=== PATIENT | male | born 1945 | race Caucasian/White ===

== ENCOUNTER 2018-11-23 19:15 | Inpatient (IN) ==
--- NOTE | 2018-11-23 19:54 | Emergency Department Note ---
Disposition Clinical Impression: Cerebrovascular accident Disposition: Admitted As Inpatient General Adult HPI - General Chief complaint: ED Neuro Symptoms/Deficit Stated complaint: Confused Time Seen by Provider: 11/23/18 19:29 Source: patient, family Limitations: no limitations - History of Present Illness HPI Narrative: Mr Raymundo is a 73M who presents today complaining of slurred speech and confusion. Pt's last known well was 11:30 this morning. Pt's is at bedside and provides most of the history. She reports their grandchildren noticed around 4:30 this afternoon the patient "didn't look good". Reports they called her and told her to come home. She report when she arrived home around 5:00, the patient was confused and had slurred speech. She also noted that while he has a known tremor in his right arm, his left arm was shaking. The reports these symptoms have nearly resolved at this time, and had begun to improve when they left the home to come to the hospital. Pain Scale: 0 - Related Data Home Medications Medication Instructions Recorded Confirmed Albuterol Sulfate [Proair Hfa] 2 puff IH Q4H PRN 12/30/15 06/19/18 Aspirin Enteric Coated [Aspirin EC] 81 mg PO DAILY 12/30/15 06/19/18 Tadalafil [Cialis] 5 mg PO DAILY 12/30/15 06/19/18 Cholecalciferol (D-3) [Vitamin D] 2,000 unit PO DAILY 01/16/18 06/19/18 Amlodipine Besylate 10 mg PO DAILY 06/19/18 06/19/18 Sulfamethoxazole/Trimeth DS 1 tab PO BID 06/19/18 06/19/18 [Bactrim Ds] Allergies Allergy/AdvReac Type Severity Reaction Status Date / Time Antihistamines - Alkylamine AdvReac unable to Verified 06/19/18 07:38 urinate Past Medical History - Past Medical History Medical history: Reports: arthritis, cardiomyopathy, COPD, coronary artery disease, GERD, hyperlipidemia, hypertension, myocardial infarction, osteoporosis, renal disease, sudden cardiac , syncope, valvular heart disease, other Surgical history: Reports: herniorrhaphy, other Psychiatric history: Reports: no psych history - Social History Smoking Status: Unknown if ever smoked Smokeless Tobacco Status: No Alcohol use: Reports: none Drug use: Reports: none Physical Exam - General Limitations: no limitations General appearance: alert Course - Consultations Consultation #1: Discussed pt's case with Dr Bower. Time: 21:13 Consultation #2: Spoke with [facility] neurologist, Dr Gurrola, who recommended pt receive an MRI during admission. States not necessary to call stroke alert or transfer pt at this time. Time: 21:33 Vital Signs Temperature 99.7 F H 11/23/18 19:31 Pulse Rate 104 11/23/18 19:31 Respiratory Rate 21 11/23/18 19:31 Blood Pressure 158/98 11/23/18 19:31 O2 Sat by Pulse Oximetry 95 11/23/18 19:31 Temperature 99.7 F H 11/23/18 19:31 Pulse Rate 101 11/23/18 21:21 Respiratory Rate 20 11/23/18 21:21 Blood Pressure 127/58 11/23/18 21:21 O2 Sat by Pulse Oximetry 91 11/23/18 21:21 Oxygen Delivery Oxygen Delivery Room Air Medical Decision Making - Medical Records Medical records reviewed: Yes I reviewed the patient's medical records. - Lab Data Result diagrams: 11/23/18 19:48 11/23/18 19:48 Lab Results 11/23/18 11/23/18 11/23/18 Range/Units 19:23 19:48 19:48 WBC 3.3 L (4.3-11.1) K/mcL RBC 4.77 (4.19-5.50) M/mcL Hgb 13.9 (12.9-16.9) g/dL Hct 41.4 (37.5-50.1) % MCV 86.8 (83.0-100.0) fL MCH 29.1 (28.0-33.3) pg MCHC 33.6 (31.6-35.5) g/dL RDW 13.6 (11.5-14.5) % Plt Count 106 L (140-400) K/mcL MPV 9.4 (9.4-12.4) fL Sodium 131 L (136-145) mEq/L Potassium 4.4 (3.5-5.1) mEq/L Chloride 100 (98-107) mEq/L Carbon Dioxide 24 (23-29) mEq/L BUN 24 H (8-23) mg/dL Creatinine 1.32 H (0.70-1.30) mg/dL Est GFR ( Amer) > 60 (> 60) Est GFR (Non-Af Amer) 53 L (> 60) BUN/Creatinine Ratio 18 (6-26) Glucose 108 H (70-105) mg/dL POC Glucose 109 H (70-99) mg/dL Calculated Osmolality 277 L (280-300) Calcium 8.8 (8.6-10.3) mg/dL Troponin I < 0.03 (< 0.04) ng/mL NIH Stroke Scale - Level of Consciousness LOC: Alert - LOC Questions LOC Questions: Answers both correctly - LOC Commands LOC Commands: Performs both correctly - Best Gaze Best Gaze: Normal - Visual Visual: No visual loss - Facial Palsy Facial Palsy: Normal - Motor Arms Motor Arm-Left: No drift for 10 seconds Motor Arm-Right: No drift for 10 seconds - Motor Legs Motor Leg-Left: No drift for 5 seconds Motor Leg-Right: No drift for 5 seconds - Limb Ataxia Limb Ataxia: Normal, No Ataxia - Sensory Sensory: Normal - Best Language Best Language: No aphasia - Dysarthria Dysarthria: Normal - Extinction and Inattention Extinction and Inattention: Normal - NIHSS Total Score NIHSS Total Score: 0
[2018-11-23 20:04] LABS: Hematocrit 41.4 % (37.5-50.1); Hemoglobin 13.9 g/dL (12.9-16.9); Mean Corpuscular HGB Conc 33.6 g/dL (31.6-35.5); Mean Corpuscular Hemoglobin 29.1 pg (28.0-33.3); Mean Corpuscular Volume 86.8 fL (83.0-100.0); Mean Platelet Volume 9.4 fL (9.4-12.4); Platelet Count 106 K/mcL (140-400); Red Blood Count 4.77 M/mcL (4.19-5.50); Red Cell Distribution Width 13.6 % (11.5-14.5)
[2018-11-23 20:23] LABS: BUN/Creatinine Ratio 18 (6-26); Blood Urea Nitrogen 24 mg/dL (8-23); Calcium 8.8 mg/dL (8.6-10.3); Carbon Dioxide 24 mEq/L (23-29); Chloride 100 mEq/L (98-107); Glucose 108 mg/dL (70-105); Osmolality,Calculated 277 (280-300); Potassium 4.4 mEq/L (3.5-5.1); Sodium 131 mEq/L (136-145); Troponin I < 0.03 ng/mL (< 0.04); eGFR For Non-African Americans 53 (> 60)
--- NOTE | 2018-11-23 20:46 | Emergency Department Note ---
Disposition Clinical Impression: Cerebrovascular accident Qualifiers: CVA mechanism: unspecified Qualified Code(s): I63.9 - Cerebral infarction, unspecified Disposition: Admitted As Inpatient General Adult HPI - General Chief complaint: ED Neuro Symptoms/Deficit Stated complaint: Confused Time Seen by Provider: 11/23/18 19:29 Source: patient, family Limitations: no limitations - History of Present Illness Pain Scale: 0 - Related Data Home Medications Medication Instructions Recorded Confirmed Albuterol Sulfate [Proair Hfa] 2 puff IH Q4H PRN 12/30/15 06/19/18 Aspirin Enteric Coated [Aspirin EC] 81 mg PO DAILY 12/30/15 06/19/18 Tadalafil [Cialis] 5 mg PO DAILY 12/30/15 06/19/18 Cholecalciferol (D-3) [Vitamin D] 2,000 unit PO DAILY 01/16/18 06/19/18 Amlodipine Besylate 10 mg PO DAILY 06/19/18 06/19/18 Sulfamethoxazole/Trimeth DS 1 tab PO BID 06/19/18 06/19/18 [Bactrim Ds] Allergies Allergy/AdvReac Type Severity Reaction Status Date / Time Antihistamines - Alkylamine AdvReac unable to Verified 06/19/18 07:38 urinate Past Medical History - Past Medical History Medical history: Reports: arthritis, cardiomyopathy, COPD, coronary artery disease, GERD, hyperlipidemia, hypertension, myocardial infarction, osteoporosis, renal disease, sudden cardiac , syncope, valvular heart disease, other Surgical history: Reports: herniorrhaphy, other Psychiatric history: Reports: no psych history - Social History Smoking Status: Unknown if ever smoked Smokeless Tobacco Status: No Alcohol use: Reports: none Drug use: Reports: none Physical Exam - General Limitations: no limitations General appearance: alert Course Vital Signs Temperature 99.7 F H 11/23/18 19:31 Pulse Rate 104 11/23/18 19:31 Respiratory Rate 21 11/23/18 19:31 Blood Pressure 158/98 11/23/18 19:31 O2 Sat by Pulse Oximetry 95 11/23/18 19:31 Temperature 98.6 F 11/23/18 22:51 Pulse Rate 98 11/23/18 22:51 Respiratory Rate 20 11/23/18 22:51 Blood Pressure 142/69 11/23/18 22:51 O2 Sat by Pulse Oximetry 94 11/23/18 22:51 Oxygen Delivery Oxygen Delivery Room Air Medical Decision Making - Lab Data Result diagrams: 11/23/18 19:48 11/23/18 19:48 Lab Results 11/23/18 11/23/18 11/23/18 Range/Units 19:23 19:48 19:48 WBC 3.3 L (4.3-11.1) K/mcL RBC 4.77 (4.19-5.50) M/mcL Hgb 13.9 (12.9-16.9) g/dL Hct 41.4 (37.5-50.1) % MCV 86.8 (83.0-100.0) fL MCH 29.1 (28.0-33.3) pg MCHC 33.6 (31.6-35.5) g/dL RDW 13.6 (11.5-14.5) % Plt Count 106 L (140-400) K/mcL MPV 9.4 (9.4-12.4) fL Sodium 131 L (136-145) mEq/L Potassium 4.4 (3.5-5.1) mEq/L Chloride 100 (98-107) mEq/L Carbon Dioxide 24 (23-29) mEq/L BUN 24 H (8-23) mg/dL Creatinine 1.32 H (0.70-1.30) mg/dL Est GFR ( Amer) > 60 (> 60) Est GFR (Non-Af Amer) 53 L (> 60) BUN/Creatinine Ratio 18 (6-26) Glucose 108 H (70-105) mg/dL POC Glucose 109 H (70-99) mg/dL Calculated Osmolality 277 L (280-300) Calcium 8.8 (8.6-10.3) mg/dL Troponin I < 0.03 (< 0.04) ng/mL Attestation Statement - Attestation Attestation: I examined this patient and my medical decision-making was reviewed with the SENIOR PLANNING MANAGER/PA/Advanced Practice Nurse/Resident Physician. I agree with the documented findings, disposition and treatment plan as described except to the extent set forth below. Patient is typically alert and oriented and appropriately interactive but the patient is now confused and I did speak with the patient as well as the . The patient's last known normal was 11:30 this morning. Head CAT scan is negative. Labs obtained and reviewed. He does not have focal neurologic deficits based on physical exam. Absolutely needs to be admitted with consideration for CVA. I did confirm several times that these are completely new findings according to the patient's . He stopped driving about 7 years ago because he had syncopal episodes however case and does drive to the store which is only several miles away patient also has a sibling who has syncopal episodes. 2044 I did review the patient's EKG showing atrial fibrillation with a rate of 105 without acute ischemic change. This was the initial EKG which was done at 1923. [id number]
[2018-11-23] MEDS ORDERED: 0.9 % Sodium Chloride 1,000 ML IVC ONE (20:51)
[2018-11-23] MEDS ORDERED: Albuterol 2.5 MG/3 ML NEBULIZER IH PRN (22:34)
[2018-11-23] MEDS ORDERED: Ondansetron 4 MG/2 ML VIAL IVP PRN (22:34)
[2018-11-23] MEDS ORDERED: Naloxone 0.4 MG/ML INJ IVP PRN (22:34)
[2018-11-23] MEDS: 0.9 % Sodium Chloride 1,000 ML IVC SCH (22:59)
[2018-11-23] MEDS: cefTRIAXone 1,000 MG in Water for inj. (sterile) 20 ML 10 ML IVP SCH (22:59)
[2018-11-23] MEDS: Azithromycin 500 MG in D5% in Water 250 ML IVPB SCH (23:04)
[2018-11-24 02:51] LABS: Mean Corpuscular Volume 85.9 fL (83.0-100.0)
[2018-11-24 02:53] LABS: Hemoglobin 11.9 g/dL (12.9-16.9); Immature Granulocytes % 0.3 % (0-4); Immature Platelets 1.9 % (1.1-6.1); Lymphocytes # 0.4 K/mcL (0.6-4.6); Mean Corpuscular HGB Conc 33.1 g/dL (31.6-35.5); Mean Corpuscular Hemoglobin 28.4 pg (28.0-33.3); Mean Platelet Volume 9.4 fL (9.4-12.4); Monocytes # 0.1 K/mcL (0.0-1.3); Monocytes % 4.9 %; Neutrophils # 2.3 K/mcL (1.6-8.9); Red Blood Count 4.19 M/mcL (4.19-5.50); Red Cell Distribution Width 13.7 % (11.5-14.5); Segmented Neutrophils % 79.8 %
[2018-11-24 02:54] LABS: Estimated Average Glucose 131 mg/dl; Hemoglobin A1C 6.2 %
[2018-11-24 02:59] LABS: Platelet Count 94 K/mcL (140-400)
[2018-11-24 03:08] LABS: Alanine Aminotransferase 52 Units/L (7-52); Albumin 3.3 g/dL (3.5-5.7); Albumin/Globulin Ratio 1.4 (1.1-2.2); Alkaline Phosphatase 80 Units/L (34-104); Aspartate Amino Transferase 85 Units/L (13-39); BUN/Creatinine Ratio 19 (6-26); Bilirubin,Total 0.4 mg/dL (0.3-1.0); Blood Urea Nitrogen 22 mg/dL (8-23); Calcium 7.9 mg/dL (8.6-10.3); Carbon Dioxide 22 mEq/L (23-29); Chloride 103 mEq/L (98-107); Globulin 2.3 g/dL (2.4-3.5); Glucose 116 mg/dL (70-105); Magnesium 1.8 mg/dL (1.6-2.6); Osmolality,Calculated 274 (280-300); Potassium 3.9 mEq/L (3.5-5.1); Sodium 130 mEq/L (136-145); Total Protein 5.6 g/dL (6.4-8.9); eGFR For Non-African Americans > 60 (> 60)
[2018-11-24 03:43] LABS: INR 1.1; Prothrombin Time 12.8 Seconds (9.4-12.1)
[2018-11-24 03:46] LABS: Activated Partial Thrombo Time 31.7 Seconds (26.0-36.0)
[2018-11-24] MEDS: Acetaminophen 325 MG TABLET PO PRN ×3 (03:54→19:15)
--- NOTE | 2018-11-24 04:23 | Internal Med History&Physical ---
Date of Encounter: 11/23/18 Time of Encounter: 21:15 Internal Medicine - H&P: HPI Chief complaint: altered mental status; slurred speech; cough Admitted From: Emergency Dept Plans for Post Hospital Care: Home History of present illness: Mr. Raymundo is a 73 year old male who presents to the ER tonight with complaints of altered mental status and slurred speech according to his . By the time he presented to ER and was evaluated, his slurred speech had resolved. He had no further focal deficits. He still had some altered mental status and confusion. Initial workup was done for possible stroke, and it was negative. ER then asked me to admit patient. Given that the symptom onset was less than 24 hours, I asked ER to contact [facility] neurology to discuss any possible further workup and/or intervention. [facility] neurology recommended admission to [facility] with MRI and further stroke workup per our protocol. I then accepted the patient. Upon my assessment of the patient, patient remained tachycardic, felt warm to touch, and was actively shivering. I questioned patient and at length and they both confirmed he's had cough, subjective fevers, chills, and a syncopal event yesterday. Symptoms started abruptly yesterday and progressively worsened today. Today, his noted he was confused, disoriented at times, and had some initial slurred speech which resolved quickly. Normally, he is an active individual and has no neurocognitive issues. He's had decreased PO intake, some nausea, but no vomiting or diarrhea. Cough has been nonproductive. He has become short of breath over last 24 hours. He also complains of some mild pleurisy with deep coughing and inspiration. I noted leukopenia after my assessment of the patient. On exam, he appeared dehydrated and appeared to have crackles focally in the left base. I was concerned moreso about pneumonia rather than stroke symptoms. I suspected his altered mental status was likely from pneumonia. Therefore, I asked the ER staff to order chest x-ray, blood cultures, empiric antibiotics at that moment as I suspected pneumonia as a source of his symptoms. Chest x-ray confirmed my suspicion. Past Med Surg Social Fam HX - Past Medical History Attestation: Yes The following information was validated with the patient. Source: patient, old records reviewed, obtained from family Medical history: arthritis, cardiomyopathy, COPD, coronary artery disease, GERD, hyperlipidemia, hypertension, myocardial infarction, osteoporosis, renal disease, sudden cardiac , syncope, valvular heart disease, other Additional medical history: BPH with nocturia,dysthymia,essential tumor,degenerative arthritis of hand,urethral stricture with history of urinary retention,symptomatic orthostatic hypotension,diverticulitis,LHC Psychiatric history: no psych history - Past Surgical History Surgical History: herniorrhaphy, other Additional surgical history: back x2. hemorrhoidectomy. urethral surgery - Social History Smoking Status: Never smoker Smokeless Tobacco Status: No Alcohol use: none Drug use: none Current living situation: Home, With Family Activity Level: Independent ambulation Recent Out of Country Travel Within the Last 8 Weeks: No - Family History Father Living Status: Hx Family Cardiac Disorders: Yes (mi) Internal Medicine - H&P: Meds Albuterol Sulfate [Proair Hfa] 2 puff IH Q4H PRN 12/30/15 [History] Aspirin Enteric Coated [Aspirin EC] 81 mg PO DAILY 12/30/15 [History] Tadalafil [Cialis] 5 mg PO DAILY 12/30/15 [History] Cholecalciferol (D-3) [Vitamin D] 2,000 unit PO DAILY 01/16/18 [History] Amlodipine Besylate 10 mg PO DAILY 06/19/18 [History] Sulfamethoxazole/Trimeth DS [Bactrim Ds] 1 tab PO BID 06/19/18 [History] Allergy/AdvReac Type Severity Reaction Status Date / Time Antihistamines - Alkylamine AdvReac unable to Verified 06/19/18 07:38 urinate - Constitutional Constitutional: chills, fatigue, fever(s), lethargy, no night sweats - EENT Eyes: no blurry vision, no change in vision Ears: no ear pain, no tinnitus Nose, mouth and throat: no nasal congestion, no sinus pressure, no sore throat - Cardiovascular Cardiovascular ROS IM: syncope, no chest pain, no edema, no irregular heart rhythm, no orthopnea - Respiratory Respiratory: cough, dyspnea, chest congestion, change in phlegm color, pain with cough, no excessive phlegm production - Gastrointestinal Gastrointestinal: nausea, no abdominal pain, no diarrhea, no hematemesis, no hematochezia, no melena, no vomiting - Genitourinary Genitourinary ROS male: no dysuria, no flank pain, no hematuria - Musculoskeletal Musculoskeletal ROS IM: no arthralgias, no back pain - Integumentary Integumentary IM: no rash, no jaundice - Neurological Neurological ROS: abnormal speech (resolved quickly), confusion, no convulsions, no focal weakness, no frequent falls, no headache(s), no numbness - Psychiatric Psychiatric: no anxiety, no depression - Endocrine Endocrine IM: no polydipsia, no polyuria - Allergic/Immunologic Allergic/Immunologic: no wheezing, no GI upset with certain foods - Constitutional Vitals: Temp Pulse Resp BP Pulse Ox 101.1 F H 87 18 145/72 92 11/24/18 03:23 11/24/18 03:23 11/24/18 03:23 11/24/18 03:23 11/24/18 03:23 General appearance: Present: cooperative, mild distress, A&O X 3, pleasant, answers questions appropriately Exam: appears acutely ill, non-toxic, dehydrated, and with active rigors - Head Head exam: Present: atraumatic, normal inspection - Eye Eye exam: Present: EOMI, PERRL. Absent: scleral icterus Pupils: Present: normal accommodation - ENT ENT exam: Present: mucous membranes dry, normal exam, normal oropharynx - Neck Neck exam general surgery: Present: full ROM, supple, trachea midline. Absent: lymphadenopathy, tenderness, nuchal rigidity, thyromegaly - Respiratory Respiratory exam: Present: rales (left base; + splinting w deep inspiration), respiratory distress (mild), rhonchi, tachypnea. Absent: chest wall tenderness, wheezes - Cardiovascular Cardiovascular exam: Present: RRR, +S1, +S2, tachycardia. Absent: diastolic murmur, systolic murmur - GI/Abdominal GI/Abdominal exam: Present: normal bowel sounds, soft. Absent: guarding, hepatomegaly, mass, rebound, splenomegaly, tenderness - Extremities Exam Extremities exam: Present: full ROM, normal capillary refill, warm, radial pulses palpable and symmetrical. Absent: calf tenderness, pedal edema, tenderness - Back Exam Back exam: Absent: CVA tenderness (L), CVA tenderness (R) - Neurological Exam Neurological exam: Present: alert, CN II-XII intact, oriented X3, no focal deficits, strengths equal and symetr throughout. Absent: motor sensory deficit, facial droop, speech deficit Additional comments: no focal deficits or AMS appreciated - Psychiatric Psychiatric exam: Present: normal affect, normal mood - Skin Skin exam: Present: dry, intact, warm Internal Med - H&P Results - Labs CBC & Chem 7: 11/24/18 02:33 11/24/18 02:33 Labs: Short CBC 11/23/18 11/24/18 Range/Units 19:48 02:33 WBC 3.3 L 2.9 L (4.3-11.1) K/mcL Hgb 13.9 11.9 L D (12.9-16.9) g/dL Hct 41.4 36.0 L (37.5-50.1) % Plt Count 106 L 94 L (140-400) K/mcL Neutrophils # 2.3 (1.6-8.9) K/mcL BMP 11/23/18 11/24/18 19:48 02:33 Sodium 131 L 130 L Potassium 4.4 3.9 Chloride 100 103 Carbon Dioxide 24 22 L BUN 24 H 22 Creatinine 1.32 H 1.16 Glucose 108 H 116 H Calcium 8.8 7.9 L Cardiac Enzymes 11/23/18 11/24/18 Range/Units 19:48 02:33 Troponin I < 0.03 < 0.03 (< 0.04) ng/mL Liver Function 11/24/18 Range/Units 02:33 Total Bilirubin 0.4 (0.3-1.0) mg/dL AST 85 H (13-39) Units/L ALT 52 (7-52) Units/L Alkaline Phosphatase 80 (34-104) Units/L Albumin 3.3 L (3.5-5.7) g/dL - Impressions ITS Impressions Head CT 11/23/18 19:52 IMPRESSION: No acute intracranial abnormality. D/ / Kyrie Nesbitt MD / Kyrie Nesbitt MD Interpreting Provider: Kyrie Nesbitt MD Chest X-Ray 11/23/18 22:07 IMPRESSION: Left lower lobe airspace disease, suspicious for early pneumonia D/ / Helio Garza MD / Helio Garza MD Interpreting Provider: Helio Garza MD - Diagnostic Studies Chest x-ray Status: image reviewed by me (LLL infiltrate) - Assessment and Plan (1) LLL pneumonia Current Visit: Yes Status: Acute Assessment and plan: 1. CXR confirmed my suspicion in ER. 2. Blood cultures ordered in ER per my request. 3. Will order sputum cultures. 4. IV antibiotics scheduled, PRN aerosols, oxygen as needed. Qualifiers: Pneumonia type: due to unspecified organism Qualified Code(s): J18.1 - Lobar pneumonia, unspecified organism (2) Sepsis Current Visit: Yes Status: Acute Assessment and plan: 1. Despite tachycardia, BP is preserved. 2. Will trend lactate levels. 3. IVF and IV antibiotics. 4. Likely etiology for AMS; do not suspect stroke. Qualifiers: Sepsis type: sepsis due to unspecified organism Qualified Code(s): A41.9 - Sepsis, unspecified organism (3) Acute encephalopathy Current Visit: Yes Status: Acute Assessment and plan: 1. Likely due to sepsis and pneumonia, not stroke. 2. Will proceed with stroke protocol nonetheless. 3. Neurochecks per protocol. 4. Will order MRI brain, carotid Dopplers, and ECHO. (4) Syncope Current Visit: Yes Status: Acute Assessment and plan: 1. Will order ECHO, Carotid Dopplers, glucose checks, and serial troponins with EKG's. 2. Likely due to sepsis. 3. Monitor on telemetry. Qualifiers: Syncope type: unspecified Qualified Code(s): R55 - Syncope and collapse (5) DVT prophylaxis Current Visit: Yes Status: Acute Assessment and plan: 1. Heparin SQ.
[2018-11-24] MEDS: 0.9 % Sodium Chloride 1,000 ML IVC SCH (05:49)
[2018-11-24] MEDS: *HR* Heparin 5,000 UNIT/ML VIAL SQ SCH ×2 (05:50→17:27)
[2018-11-24 07:08] LABS: Bilirubin,Urine Negative (Negative); Blood,Urine Negative (Negative); Clarity,Urine Cloudy (Clear); Color,Urine Yellow (Yellow); Glucose,Urine (UA) Normal (Normal); Ketones,Urine Negative (Negative); Leukocyte Esterase,Urine Negative (Negative); Nitrite,Urine Negative (Negative); PH,Urine 5.5 pH Units (5.0-8.0); Protein,Urine 100 mg/dL (Neg-Trace); Specific Gravity,Urine 1.021 (1.010-1.025); Urobilinogen,Urine Normal (Normal)
[2018-11-24 07:11] LABS: Hyaline Casts,Urine None Seen per lpf (None-Few); RBC,Urine 0-3 per hpf (0-3)
[2018-11-24] MEDS ORDERED: Perflutren Lipid Microsphere 1.3 ML in 0.9 % Sodium Chloride 8.7 ML IVP ONE (07:46)
[2018-11-24 07:48] LABS: Bacteria,Urine Many per hpf (None-Few); Squamous Epithelial Cell,Urine Few per lpf (None-Few)
[2018-11-24 07:49] LABS: Amorphous Sediment,Urine Few (Few)
[2018-11-24] MEDS ORDERED: cefTRIAXone 1,000 MG in Water for inj. (sterile) 20 ML 10 ML IVP SCH (09:00)
[2018-11-24] MEDS ORDERED: Aspirin Enteric Coated 81 MG Tablet PO SCH (09:00)
[2018-11-24] MEDS: cefTRIAXone 1,000 MG in Water for inj. (sterile) 20 ML 10 ML IVP SCH (09:34)
[2018-11-24] MEDS: amLODIPine 5 MG TABLET PO SCH (09:34)
--- NOTE | 2018-11-24 10:13 | Internal Med Progress Note ---
<Fawad Jaimes - Last Filed: 11/24/18 11:00> Hospitalist Progress Note - Encounter Date of Encounter: 11/24/18 Time of Encounter: 11:00 - Subjective Interval History: Patient admitted for acute encephalopathy and strokelike symptoms. He reports he has been feeling very weak and tired for the past 3 to 4 days. He was cut ting wood 2 days ago and felt so fatigued he had to stop and lay down. Yesterday patient woke up and was walking to the bathroom and felt so weak his legs gave out. And he reports he was on the floor for an unknown amount of time before his family found him and he came to the hospital. - Exam Vitals: Temp Pulse Resp BP Pulse Ox 98.1 F 75 14 146/64 95 11/24/18 09:21 11/24/18 09:21 11/24/18 09:21 11/24/18 09:21 11/24/18 09:21 Exam: General: pleasant, without distress HEENT: Head atraumatic, normocephalic, EOMI, PERRL, absent ear discharge or trauma, Moist Mucous Membranes, uvula midline Neck: nontender to palpation, absent lymphadenopathy, Cardiovascualr: Regular rate and rhythm with no murmur, absent gallops or rubs, absent pedal edema, radial pulses 2 out of 4 Lungs: Clear to auscultation bilaterally, not in respiratory distress Abdomen: Soft nontender, nondistended positive bowel sounds, absent hepatomegaly Skin: warm and dry, absent rash, absent open wounds and nodules MSK: absent clubbing, cyanosis, joints without swelling Neuro: Cranial nerves II through XII intact, UE and LE sensation equal bilaterally, UE and LEstrength 4/5, alert oriented 3, Heel to matthews intact, finger to nose intact, Gait intact, rhombergs sign negative, b/l plantar reflexes downwards Psych: good insight and judgment - Assessment and Plan (1) Sepsis Current Visit: Yes Status: Acute Assessment and Plan: Febrile, leukopenic, tachypneic, tachycardic Secondary to pneumonia Etiology of the pneumonia unknown Did not receive all of IV fluids due to concern of developing acute respiratory failure as pateint had crackles on exam on admission. Lactic acid 1.5. (2) LLL pneumonia Current Visit: Yes Status: Acute Assessment and Plan: Chest x-ray shows pneumonia Started on azithromycin and ceftriaxone Blood cultures pending, sputum culture pending If patient continues to have fever will add anaerobic coverage. (3) Septic encephalopathy Current Visit: Yes Status: Acute Assessment and Plan: Secondary to pneumonia Resolved patient is alert oriented 3 (4) CAD (coronary artery disease) Current Visit: Yes Status: Chronic Assessment and Plan: History of coronary artery disease Denies chest pain Echo cardio shows LVEF of 60% with right ventricular size dilated, normal systolic function and mild to moderate mitral regurgitation and tricuspid regurgitation. Continue aspirin, statin. (5) Hypertension Current Visit: Yes Status: Chronic Assessment and Plan: Continue amlodipine (6) Syncope Current Visit: Yes Status: Acute Assessment and Plan: Unclear etiology of syncope but can likely be too severe weakness from his infection Brain MRI was negative, head CT was negative carotid Dopplers bilaterally were negative. Echocardiogram as above. Patient has generalized weakness. Neuro exam nonfocal and nonlateralizing Awaiting speech therapy recommendations. We will get physical therapy and occupational therapy. We will obtain a CK as patient was on the ground for unknown amount of time. - Time Spent with Patient Total time spent is greater than 50% in coordination of care (as documented) at patient's floor/unit and/or counseling patient: Internal Medicine: Result - Labs CBC & Chem 7: 11/24/18 02:33 11/24/18 02:33 Labs: Short CBC 11/23/18 11/24/18 Range/Units 19:48 02:33 WBC 3.3 L 2.9 L (4.3-11.1) K/mcL Hgb 13.9 11.9 L D (12.9-16.9) g/dL Hct 41.4 36.0 L (37.5-50.1) % Plt Count 106 L 94 L (140-400) K/mcL Neutrophils # 2.3 (1.6-8.9) K/mcL BMP 11/23/18 11/24/18 19:48 02:33 Sodium 131 L 130 L Potassium 4.4 3.9 Chloride 100 103 Carbon Dioxide 24 22 L BUN 24 H 22 Creatinine 1.32 H 1.16 Glucose 108 H 116 H Calcium 8.8 7.9 L Cardiac Enzymes 11/23/18 11/24/18 Range/Units 19:48 02:33 Troponin I < 0.03 < 0.03 (< 0.04) ng/mL Liver Function 11/24/18 Range/Units 02:33 Total Bilirubin 0.4 (0.3-1.0) mg/dL AST 85 H (13-39) Units/L ALT 52 (7-52) Units/L Alkaline Phosphatase 80 (34-104) Units/L Albumin 3.3 L (3.5-5.7) g/dL Urine 11/24/18 Range/Units 06:53 Urine Color Yellow (Yellow) Urine Clarity Cloudy A (Clear) Urine pH 5.5 (5.0-8.0) pH Units Ur Specific [place] 1.021 (1.010-1.025) Urine Protein 100 H (Neg-Trace) mg/dL Urine Glucose (UA) Normal (Normal) mg/dL - ABG Interpretation ABG results: PT/INR, D-dimer PT 12.8 Seconds (9.4-12.1) H 11/24/18 02:33 - Impressions Impressions Head CT 11/23/18 19:52 IMPRESSION: No acute intracranial abnormality. D/ / Kyrie Nesbitt MD / Kyrie Nesbitt MD Interpreting Provider: Kyrie Nesbitt MD Chest X-Ray 11/23/18 22:07 IMPRESSION: Left lower lobe airspace disease, suspicious for early pneumonia D/ / Helio Garza MD / Helio Garza MD Interpreting Provider: Helio Garza MD Brain MRI 11/24/18 07:10 IMPRESSION: 1. No acute intracranial abnormality. No acute infarct. 2. Minimal global parenchymal volume loss with minimal chronic microvascular ischemic changes. D/ / Godfrey Nieves MD / Godfrey Nieves MD Interpreting Provider: Godfrey Nieves MD Consult Discharge Plan - Plan Referrals: Tor Maldonado MD [Primary Care Provider] - (Appointment has been requested. Our offices will call with an appointment time and date.) <Angelic Castro - Last Filed: 11/24/18 12:25> Hospitalist Progress Note - Encounter Date of Encounter: 11/24/18 - Exam Vitals: Temp Pulse Resp BP Pulse Ox 99.6 F 72 16 134/84 93 11/24/18 11:49 11/24/18 11:49 11/24/18 11:49 11/24/18 11:49 11/24/18 11:49 - Assessment and Plan (1) Syncope Current Visit: Yes Status: Acute (2) LLL pneumonia Current Visit: Yes Status: Acute (3) Sepsis Current Visit: Yes Status: Acute (4) Acute encephalopathy Current Visit: Yes Status: Acute (5) DVT prophylaxis Current Visit: Yes Status: Acute - Time Spent with Patient Total time spent is greater than 50% in coordination of care (as documented) at patient's floor/unit and/or counseling patient: Internal Medicine: Result - Labs CBC & Chem 7: 11/24/18 02:33 11/24/18 02:33 Labs: Short CBC 11/23/18 11/24/18 Range/Units 19:48 02:33 WBC 3.3 L 2.9 L (4.3-11.1) K/mcL Hgb 13.9 11.9 L D (12.9-16.9) g/dL Hct 41.4 36.0 L (37.5-50.1) % Plt Count 106 L 94 L (140-400) K/mcL Neutrophils # 2.3 (1.6-8.9) K/mcL BMP 11/23/18 11/24/18 19:48 02:33 Sodium 131 L 130 L Potassium 4.4 3.9 Chloride 100 103 Carbon Dioxide 24 22 L BUN 24 H 22 Creatinine 1.32 H 1.16 Glucose 108 H 116 H Calcium 8.8 7.9 L Cardiac Enzymes 11/23/18 11/24/18 11/24/18 Range/Units 19:48 02:33 10:36 Troponin I < 0.03 < 0.03 < 0.03 (< 0.04) ng/mL Liver Function 11/24/18 Range/Units 02:33 Total Bilirubin 0.4 (0.3-1.0) mg/dL AST 85 H (13-39) Units/L ALT 52 (7-52) Units/L Alkaline Phosphatase 80 (34-104) Units/L Albumin 3.3 L (3.5-5.7) g/dL Urine 11/24/18 Range/Units 06:53 Urine Color Yellow (Yellow) Urine Clarity Cloudy A (Clear) Urine pH 5.5 (5.0-8.0) pH Units Ur Specific [place] 1.021 (1.010-1.025) Urine Protein 100 H (Neg-Trace) mg/dL Urine Glucose (UA) Normal (Normal) mg/dL - ABG Interpretation ABG results: PT/INR, D-dimer PT 12.8 Seconds (9.4-12.1) H 11/24/18 02:33 - Impressions Impressions Head CT 11/23/18 19:52 IMPRESSION: No acute intracranial abnormality. D/ / Kyrie Nesbitt MD / Kyrie Nesbitt MD Interpreting Provider: Kyrie Nesbitt MD Chest X-Ray 11/23/18 22:07 IMPRESSION: Left lower lobe airspace disease, suspicious for early pneumonia D/ / Helio Garza MD / Helio Garza MD Interpreting Provider: Helio Garza MD Echocardiogram 11/23/18 22:39 Impressions: LVEF 60%. Indeterminate diastolic function. Right ventricular size is dilated. Systolic function is normal. Mild-moderate mitral regurgitation. Mild-moderate tricuspid regurgitation. No pulmonary hypertension. Left Ventricular Wall Motion: Rest Echo Findings All wall segments showed normal motion. Findings: Study Quality * Technically adequate exam. ECG Findings * Normal sinus rhythm. Left Ventricle * LVEF 60%. * Indeterminate diastolic function. * LV chamber size and wall thickness measurements are normal. * No LVOT obstruction. Right Ventricle * Right ventricular size is dilated. Systolic function is normal. Left Atrium * Mildly dilated left atrium. Right Atrium * Moderately dilated right atrium. Mitral Valve * Mild mitral annular calcification * No mitral stenosis. * Mildly calcified mitral valve leaflets. * Mild-moderate mitral regurgitation. Aortic Valve * Aortic valve not well visualized. * No aortic stenosis. * Trace aortic regurgitation. Tricuspid Valve * Tricuspid valve not well visualized. * Mild-moderate tricuspid regurgitation. Pulmonic Valve * Pulmonic valve is not well visualized. * No pulmonic stenosis. * No pulmonic regurgitation. Pulmonary Artery * Pulmonary artery not well visualized. Aorta * Not well visualized. Pericardium * There is no pericardial effusion present. Interatrial Septum * No evidence of PFO by color Doppler. IVC * The IVC is not well evaluated. Brain MRI 11/24/18 07:10 IMPRESSION: 1. No acute intracranial abnormality. No acute infarct. 2. Minimal global parenchymal volume loss with minimal chronic microvascular ischemic changes. D/ / Godfrey Nieves MD / Godfrey Nieves MD Interpreting Provider: Godfrey Nieves MD - Attending Attestation I examined this patient and my medical decision-making was reviewed with the Resident Physician Dr Jaimes. I agree with the documented findings, disposition and treatment plan as described except to the extent set forth below. Mr Raymundo is admitted for sepsis and pna after presenting with acute mental status change, generalized unwellness and syncope awake, not confused today, overall "feeling just better", cannot say exactly how. no sob, + cough, dry, denies wheezing, fevers or chills. no weakness, no slurred speech. denies dizziness or lightheadedness. no family present gen- alert, awake,appears stated age eyes- pupils equal round , eom intact cv- reg rate and rhythm, normal s1,s2, no murmurs appreciated, no le edema lungs- ctabl, no wheezing, rhonchi or crackles, diminished left base, normal resp effort on room air abd- soft, non tender, non distended, + bs neuro- AAOx3, CN grossly intact, no focal deficits, clear speech Sepsis 2/2 LLL pna -IVFs (not full sepsis fluids on admit given crackles in lungs and concern for fluid with echo pending at the time) -ucx and bl cx pending -Azithro + rocephin LLL Pna, organism unknown -azithro + rocephin, nebs, attempt to ID organism, check [employer] though low suspicion aspiration given LLL pna Acute encephaloapthy likely infectious etiology given pna, now resolved CVA ruled out Low suspicion related to hyponatremia as appears to be chronic in nature and improved with pna treatment with na unchanged -cont neuro checks -MRI reviewed, CUS and echo pending Syncope again suspect 2/2 sepsis/pna + dehydration -cont tele, cus and echo pending, trops neg Pancytopenia With leukopenia and thrombocytopenia present on admit suspect changes related to sepsis no active bleeding -will cont to treat sepsis as above and monitor for changes -would benefit from outpt work up on dc hyponatremia, appears chronic vs acure on chronic ( no recent labs) mental status improved without change in sodium suspect hypovolemic in nature -ivf, serial sodium checks, neuro checks, u studies pending next na level further diagnoses and plan as noted by resident <Fawad Jaimes - Last Filed: 11/24/18 11:00> (1) Sepsis Qualifiers: Sepsis type: sepsis due to unspecified organism Qualified Code(s): A41.9 - Sepsis, unspecified organism (2) LLL pneumonia Qualifiers: Pneumonia type: due to unspecified organism Qualified Code(s): J18.1 - Lobar pneumonia, unspecified organism (4) CAD (coronary artery disease) Qualifiers: Coronary Disease-Associated Artery/Lesion type: [place] artery [place] vs. transplanted heart: [place] heart Associated angina: with unstable angina Qualified Code(s): I25.110 - Atherosclerotic heart disease of [place] coronary artery with unstable angina pectoris (5) Hypertension Qualifiers: Hypertension type: essential hypertension Qualified Code(s): I10 - Essential (primary) hypertension (6) Syncope Qualifiers: Syncope type: unspecified Qualified Code(s): R55 - Syncope and collapse <Angelic Castro - Last Filed: 11/24/18 12:25> (1) Syncope Qualifiers: Syncope type: unspecified Qualified Code(s): R55 - Syncope and collapse (2) LLL pneumonia Qualifiers: Pneumonia type: due to unspecified organism Qualified Code(s): J18.1 - Lobar pneumonia, unspecified organism (3) Sepsis Qualifiers: Sepsis type: sepsis due to unspecified organism Qualified Code(s): A41.9 - Sepsis, unspecified organism
[2018-11-24 11:40] LABS: Creatine Kinase 83 Units/L (30-223); Troponin I < 0.03 ng/mL (< 0.04)
[2018-11-24 14:35] LABS: BUN/Creatinine Ratio 18 (6-26); Blood Urea Nitrogen 21 mg/dL (8-23); Calcium 8.1 mg/dL (8.6-10.3); Carbon Dioxide 24 mEq/L (23-29); Chloride 104 mEq/L (98-107); Glucose 134 mg/dL (70-105); Osmolality,Calculated 279 (280-300); Potassium 3.7 mEq/L (3.5-5.1); Sodium 132 mEq/L (136-145); eGFR For Non-African Americans > 60 (> 60)
[2018-11-24] MEDS ORDERED: *HR* OxyCODONE Immed Rel 5 MG TABLET PO PRN (15:58)
[2018-11-24] MEDS: *HR* HYDROcodone/Acet 5/325 mg TABLET PO PRN (17:27)
[2018-11-24 20:01] LABS: BUN/Creatinine Ratio 21 (6-26); Blood Urea Nitrogen 22 mg/dL (8-23); Carbon Dioxide 21 mEq/L (23-29); Chloride 102 mEq/L (98-107); Glucose 117 mg/dL (70-105); Osmolality,Calculated 278 (280-300); Potassium 4.1 mEq/L (3.5-5.1); Sodium 132 mEq/L (136-145); eGFR For Non-African Americans > 60 (> 60)
[2018-11-24] MEDS ORDERED: Azithromycin 500 MG in D5% in Water 250 ML IVPB SCH (21:00)
[2018-11-25] MEDS ORDERED: *HR* LORazepam 2 MG/ML VIAL IVP PRN (00:10)
[2018-11-25] MEDS: Azithromycin 500 MG in D5% in Water 250 ML IVPB SCH (00:15)
--- NOTE | 2018-11-25 00:22 | Event Note ---
Date of Encounter: 11/25/18 Time of Encounter: 00:16 I responded to a rapid response on this patient for witnessed seizure activity by RN. By the time we arrived to bedside, he had no seizure activity but appeared post-ictal. No report of loss of bowel or bladder function. He is somnolent, awakens to voice, and remains confused. I reviewed records, MRI report, and meds. I admitted this patient yesterday and remember him. I have some concern now for meningoencephalitis despite negative MRI. I asked pharmacy to load patient with Keppra, start Acyclovir, and I added Vancomycin and increased Rocephin to high dosing. I ordered Neurology consult and IR consult for possible LP and further treatment/work-up as indicated.
[2018-11-25] MEDS: Acyclovir 800 MG in D5% in Water 250 ML IVPB SCH ×3 (00:25→17:49)
[2018-11-25] MEDS: cefTRIAXone 2,000 MG in Water for inj. (sterile) 20 ML 20 ML IVP SCH ×2 (01:08→11:33)
[2018-11-25] MEDS: Acetaminophen 325 MG TABLET PO PRN ×2 (03:49→17:47)
[2018-11-25 05:14] LABS: Basophils % 0.4 %; Hemoglobin 12.5 g/dL (12.9-16.9); Mean Platelet Volume 10.7 fL (9.4-12.4); Monocytes % 3.2 %; Red Cell Distribution Width 13.6 % (11.5-14.5)
[2018-11-25 05:16] LABS: Hematocrit 36.7 % (37.5-50.1); Immature Granulocytes % 0.7 % (0-4); Immature Platelets 4.7 % (1.1-6.1); Lymphocytes # 0.5 K/mcL (0.6-4.6); Lymphocytes % 16.7 %; Mean Corpuscular HGB Conc 34.1 g/dL (31.6-35.5); Mean Corpuscular Volume 85.2 fL (83.0-100.0); Monocytes # 0.1 K/mcL (0.0-1.3); Neutrophils # 2.2 K/mcL (1.6-8.9); Red Blood Count 4.31 M/mcL (4.19-5.50)
[2018-11-25 05:37] LABS: BUN/Creatinine Ratio 18 (6-26); Blood Urea Nitrogen 21 mg/dL (8-23); Carbon Dioxide 21 mEq/L (23-29); Chloride 102 mEq/L (98-107); Glucose 126 mg/dL (70-105); Osmolality,Calculated 277 (280-300); Potassium 3.9 mEq/L (3.5-5.1); Sodium 131 mEq/L (136-145); eGFR For Non-African Americans 59 (> 60)
[2018-11-25 05:41] LABS: Platelet Count 57 K/mcL (140-400)
[2018-11-25 05:42] LABS: Platelet Estimate Decreased (Normal)
[2018-11-25] MEDS: *HR* HYDROcodone/Acet 5/325 mg TABLET PO PRN (06:02)
[2018-11-25] MEDS: *HR* Heparin 5,000 UNIT/ML VIAL SQ SCH (06:03)
[2018-11-25] MEDS ORDERED: NON-FORMULARY MEDICATION 1 EACH EACH (Pravastatin Sodium [Pravachol] 20 MG) PO SCH (09:00)
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
[2018-11-25] MEDS: amLODIPine 5 MG TABLET PO SCH (09:11)
--- NOTE | 2018-11-25 11:13 | Electrocardiograph Report ---
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
[2018-11-25] MEDS ORDERED: Silver Sulfadiazine 50 GM TUBE TP SCH (17:45)
[2018-11-25] MEDS ORDERED: *HR* Labetalol 20 MG/4 ML SYRINGE IVP PRN (17:53)
[2018-11-25 18:10] LABS: ABG Base Excess -2 mEq/L (-2 to 3); ABG HCO3 21 mEq/L (21-27); ABG Oxygen Saturation 92 % (95-98); ABG PCO2 29 mmHg (35-45); ABG PH 7.46 pH Units (7.32-7.45); ABG PO2 59 mmHg (85-104); ABG TCO2 21 mEq/L (20-26)
--- NOTE | 2018-11-25 18:36 | Discharge Summary ---
<Zachery Rodrigues S - Last Filed: 11/25/18 18:33> - NOTES TO OUTPATIENT PROVIDER Notes to Outpatient Provider: F/U with neurology as an outpatient. Headache workup. EEG pending. Pt will be transferred to [facility] at this time once bed available. Orders not resulted at time of discharge: Pending orders 11/23/18 22:39 Culture,Blood [BC] Stat 11/24/18 04:30 Culture,Sputum with Gram Stain [RM] Stat 11/25/18 00:13 CSF ROUTINE [BF] Routine Culture,CSF [RM] Routine HOLD TUBE, CSF [BF] Routine 11/25/18 00:15 Herpes Simplex PCR Body Fl Routine 11/25/18 04:00 Legionella Antigen [RM] AM 0400 Streptococcal pneumoniae urin antigen [S. Pneumoniae Antigen] [RM] AM 0400 11/25/18 17:56 Ammonia Stat 11/25/18 18:[address] without Contrast [CT head/brain wo con] [CT] Stat 11/26/18 14:00 Vancomycin,Trough Timed Date of Encounter: 11/25/18 Time of Encounter: 18:45 - Discharge Diagnosis (1) Seizure Priority: Secondary Status: Suspected (2) LLL pneumonia Priority: Secondary Status: Acute Qualifiers: Pneumonia type: due to unspecified organism Qualified Code(s): J18.1 - Lobar pneumonia, unspecified organism (3) Syncope Priority: Primary Status: Acute Qualifiers: Syncope type: unspecified Qualified Code(s): R55 - Syncope and collapse (4) Headache Priority: Secondary Status: Chronic Qualifiers: Headache type: unspecified Headache chronicity pattern: unspecified pattern Intractability: not intractable Qualified Code(s): R51 - Headache (5) CAD (coronary artery disease) Priority: Secondary Status: Chronic Qualifiers: Coronary Disease-Associated Artery/Lesion type: robinson artery [place] vs. transplanted heart: robinson heart Associated angina: with unstable angina Qualified Code(s): I25.110 - Atherosclerotic heart disease of robinson coronary artery with unstable angina pectoris (6) Hypertension Priority: Secondary Status: Chronic Qualifiers: Hypertension type: essential hypertension Qualified Code(s): I10 - Essential (primary) hypertension (7) Sepsis Priority: Secondary Status: Acute Qualifiers: Sepsis type: sepsis due to unspecified organism Qualified Code(s): A41.9 - Sepsis, unspecified organism (8) Acute encephalopathy Priority: Secondary Status: Acute (9) DVT prophylaxis Priority: Secondary Status: Acute Hospital course: Mr. Raymundo is a 73 year old male who presented to the ER on 11/24/18 with complaints of altered mental status and slurred speech according to his . By the time he presented to ER and was evaluated, his slurred speech had resolved. He had no further focal deficits. He still had some altered mental status and confusion. Initial workup was done for possible stroke, and it was negative. Overnight attending asked ER to contact [facility] neurology to discuss any possible further workup and/or intervention. [facility] neurology recommended admission to [place] with MRI and further stroke workup per our protocol. He was accepted fr further workup and treatment. On initial assessment of the pt as per night attending, he was tacycardic and warm and shivering.According to the symptoms started abruptly and progressively worsened. The noted he was confused, disoriented at times, and had some initial slurred speech which resolved quickly. Normally, he is an active individual and has no neurocognitive issues. He's had decreased PO intake, some nausea, but no vomiting or diarrhea. Cough has been nonproductive. He has become short of breath and mild pleurisy with deep coughing and inspiration. Workup fr syncope was non-revealing, including an ECHO with LVEF 60% with right ventricular size dilated, normal systolic function and mild to moderate mitral regurgitation and tricuspid regurgitation. Carotid duplex US negative bilaterally. CT head on admission negative. MRI head negative. XR showed pneumonia on imaging. He was started on antibiotics for this. Overnight on 11.25.18, the night attending was called due to suspected seizure. The pt had no known hx of seizure like activity. The suspicion for possible meningitis was on the differetial so a LP was ordered, which couldn't be performed due to limited resources and no IR. He was started on high dose rocephin, vancomycin and acyclovir. In the morning I called neurlogy who evaluated the pt at bedside and ordered an EEG. He felt this was related to possible parkinson's. This afternoon I was paged to the bedside. Pt was not at baseline. He was shaking and hardly able to lift his hand to his mouth. He was having difficulty drinking and appeared t be very flushed. He also had red eyes, which weren't appearant this morning. I ordered a STAT ABG, which was normal. STAT ammonia pending. STAT CT head w/o cntrast pending. I called Dr. Nguyen, neurology, who suggested transferring the pt to [facility] for continuous epileptic monitring. Discussed the case with my attending who agreed that transfer was best and with the patient's family, who agreed t transfer. Called [facility] at approx 630 PM, awaiting call back. Discharge order placed pending placement as well as med rec completed. Will continue to monitor and sign out to night-time resident to keep close watch on pt. Discharge discussed with: patient, family, nurse Time spent discussing smoking cessation with patient: 3 to 10 minutes - Time Spent with Patient Total time spent providing and/or coordinating discharge services: Time spent: Greater than 30 minutes - Discharge Medications Prescriptions: Continued Aspirin Enteric Coated [Aspirin EC] 81 mg PO DAILY Tadalafil [Cialis] 5 mg PO DAILY Albuterol Sulfate [Proair Hfa] 2 puff IH Q4H PRN PRN Reason: Shortness Of Breath Amitriptyline [Elavil] 50 mg PO HS Amlodipine Besylate 5 - 10 mg PO DAILY Cholecalciferol (Vitamin D3) [Vitamin D3] 2,000 unit PO DAILY Omeprazole [PriLOSEC] 20 mg PO DAILY Pravastatin Sodium [Pravachol] 20 mg PO DAILY Losartan Potassium 25 mg PO DAILY Home Medications: Albuterol Sulfate [Proair Hfa] 2 puff IH Q4H PRN 12/30/15 [History] Aspirin Enteric Coated [Aspirin EC] 81 mg PO DAILY 12/30/15 [History] Tadalafil [Cialis] 5 mg PO DAILY 12/30/15 [History] Amitriptyline [Elavil] 50 mg PO HS 11/24/18 [History] Amlodipine Besylate 5 - 10 mg PO DAILY 11/24/18 [History] Cholecalciferol (Vitamin D3) [Vitamin D3] 2,000 unit PO DAILY 11/24/18 [History] Losartan Potassium 25 mg PO DAILY 11/24/18 [History] Omeprazole [PriLOSEC] 20 mg PO DAILY 11/24/18 [History] Pravastatin Sodium [Pravachol] 20 mg PO DAILY 11/24/18 [History] Allergies/Adverse Reactions: Allergy/AdvReac Type Severity Reaction Status Date / Time Antihistamines - Alkylamine AdvReac unable to Verified 06/19/18 07:38 urinate Date of admission: 11/23/18 22:34 Primary care physician: Tor Maldonado MD Consults: 11/24/18 08:23 Consult to Nurse Navigator [CONS] Routine Comment: PNEUMONIA 11/24/18 11:07 Consult to Physical Therapy [CONS] Stat Comment: Evaluate, develop and implement POC Reason for Consult: Generalized weakness syncope fall Does patient have active BEDREST order?: No Is patient medically & hemodynamically stable?: Yes Patient assessed for mobility or mobilized this visit?: No 11/25/18 00:10 Consult to Interventional Radiology [CONS] Routine Consulting Provider: Radiology Interventional Cols Reason for Consult: LP Call Completed: No Consult to Neurology [CONS] Routine Consulting Provider: Neurology [facility] Reason for Consult: seizure; concern for encephalitis Call Completed: No 11/25/18 09:09 Consult to Speech Therapy [CONS] Routine Comment: Evaluate, develop and implement POC Reason for Consult: r/o aspiration Call Completed: No 11/25/18 16:13 Consult to Interpret Exam [CONS] Routine Consulting Provider: Liam Nguyen Consult to Interpret Exam: Interpret EEG Discharging clinician: Zachery Rodrigues Anticipated date of discharge: 11/25/18 - Constitutional Vitals: Temp Pulse Resp BP Pulse Ox 99.1 F 104 16 161/69 96 11/25/18 17:36 11/25/18 17:36 11/25/18 17:36 11/25/18 17:36 11/25/18 17:36 General appearance: Present: cooperative, mild distress, A&O X 3, pleasant, answers questions appropriately Exam: General: pleasant, without distress HEENT: Head atraumatic, normocephalic, EOMI, PERRL, absent ear discharge or trauma, Moist Mucous Membranes, uvula midline Neck: nontender to palpation, absent lymphadenopathy, Cardiovascualr: Regular rate and rhythm with no murmur, absent gallops or rubs, absent pedal edema, radial pulses 2 out of 4 Lungs: Clear to auscultation bilaterally, not in respiratory distress Abdomen: Soft nontender, nondistended positive bowel sounds, absent hepatomegaly Skin: warm and dry, absent rash, absent open wounds and nodules MSK: absent clubbing, cyanosis, joints without swelling Neuro: Cranial nerves II through XII intact, UE and LE sensation equal bilaterally, UE and LEstrength 4/5, alert oriented 3, Heel to matthews intact, finger to nose intact, Gait intact, rhombergs sign negative, b/l plantar reflexes downwards; increased tremors from this monring, shaking at bedside and unable to properly lift cup to face to drink Psych: good insight and judgment - Patient Status Disposition: Transfer Short-Term Hosp Condition: Fair Functional capacity at discharge: uses cane/walker Overall status at discharge: patient is not back to baseline - Discharge Instructions Follow Up With: Tor Maldonado MD [Primary Care Provider] - (Appointment has been requested. Our offices will call with an appointment time and date.) - Diet and Activity Activity: increase activity as tolerated Diet: other (NPO currently, aspiration risk) <Angelic Castro - Last Filed: 11/25/18 19:27> Orders not resulted at time of discharge: Pending orders 11/23/18 22:39 Culture,Blood [BC] Stat 11/24/18 04:30 Culture,Sputum with Gram Stain [RM] Stat 11/25/18 00:13 CSF ROUTINE [BF] Routine Culture,CSF [RM] Routine HOLD TUBE, CSF [BF] Routine 11/25/18 00:15 Herpes Simplex PCR Body Fl Routine 11/25/18 04:00 Legionella Antigen [RM] AM 0400 Streptococcal pneumoniae urin antigen [S. Pneumoniae Antigen] [RM] AM 0400 11/25/18 17:56 Ammonia Stat 11/25/18 18:[address] without Contrast [CT head/brain wo con] [CT] Stat 11/25/18 19:03 CMP [Comprehensive Metabolic Panel] Stat Complete Blood Count [HEME] Stat 11/26/18 14:00 Vancomycin,Trough Timed Date of Encounter: 11/25/18 - Discharge Diagnosis (1) Syncope Status: Acute Qualifiers: Syncope type: unspecified Qualified Code(s): R55 - Syncope and collapse (2) LLL pneumonia Status: Acute Qualifiers: Pneumonia type: due to unspecified organism Qualified Code(s): J18.1 - Lobar pneumonia, unspecified organism (3) Sepsis Status: Acute Qualifiers: Sepsis type: sepsis due to unspecified organism Qualified Code(s): A41.9 - Sepsis, unspecified organism (4) Acute encephalopathy Status: Acute (5) DVT prophylaxis Status: Acute Hospital course: Mr. Raymundo is a 73 year old male - Time Spent with Patient Total time spent providing and/or coordinating discharge services: Time spent: Greater than 30 minutes (50 min) Date of admission: 11/23/18 22:34 Primary care physician: Tor Maldonado MD Consults: 11/24/18 08:23 Consult to Nurse Navigator [CONS] Routine Comment: PNEUMONIA 11/24/18 11:07 Consult to Physical Therapy [CONS] Stat Comment: Evaluate, develop and implement POC Reason for Consult: Generalized weakness syncope fall Does patient have active BEDREST order?: No Is patient medically & hemodynamically stable?: Yes Patient assessed for mobility or mobilized this visit?: No 11/25/18 00:10 Consult to Interventional Radiology [CONS] Routine Consulting Provider: Radiology Interventional Cols Reason for Consult: LP Call Completed: No Consult to Neurology [CONS] Routine Consulting Provider: Neurology [facility] Reason for Consult: seizure; concern for encephalitis Call Completed: No 11/25/18 09:09 Consult to Speech Therapy [CONS] Routine Comment: Evaluate, develop and implement POC Reason for Consult: r/o aspiration Call Completed: No 11/25/18 16:13 Consult to Interpret Exam [CONS] Routine Consulting Provider: Liam Nguyen Consult to Interpret Exam: Interpret EEG - Constitutional Vitals: Temp Pulse Resp BP Pulse Ox 97.3 F L 111 17 142/66 98 11/25/18 18:33 11/25/18 18:33 11/25/18 18:33 11/25/18 18:33 11/25/18 18:33 - Attending Attestation I examined this patient and my medical decision-making was reviewed with the Resident Physician Dr Rodrigues. I agree with the documented findings, disposition and treatment plan as described except to the extent set forth below. Mr Raymundo is admitted for sepsis and pna after presenting with acute mental status change. His stroke work up was negative. 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 At that time given waxing and waning mental status the pt was started on empiric abx + acyclovir to treat possible encephalitis/meningitis with neuro consult placed. Neurology evaluated the patient, ordered EEG, cont vanc + rocephin + acyclovir awaiting LP and concern this was related to parkinson disease. At 6pm today nursing noted worse hand tremor and increased fatigue. Resident to bedside and discussed findings in detail. Resident nurse and I in communication with stat labs ordered and stat CT head. Dr Nguyen was updated and recommended transfer for continuous EEG monitoring, though not entirely convincing for seizure like activity and none witnessed currently. At time of this note, family has agreed to transfer to [facility], Dr Nguyen is reviewing todays EEG, stat CT scan remains pending and stat labs pe nding, and pt accepted to [facility] under Dr Valle. Resident was about to sign out to night team plan and pending studies when at 7:04 pm rapid response was called for elevated HR. As I am no longer in house, I have communicated to Hospitalist Admitter who responds to rapids current plan and pending studies. prior examination by myself See resident note for exam thereafter gen- awake,appears stated age eyes- pupils equal round , eom intact cv- reg rate and rhythm, normal s1,s2, no murmurs appreciated lungs- ctabl, no wheezing, rhonchi or crackles, normal resp effort on room air abd- soft, non tender, non distended, + bs neuro- AAOx3, CN grossly intact, no focal deficits, non focal generalized weakness Sepsis 2/2 LLL pna, possible neurologic infection, but Ruling out encephalitis, meningitis Fever, leukopenia Hemodynamically stable off IVFs -ucx and bl cx ngtd -IR for LP ordered, not yet preformed -Azithro + rocephin + VAnc + acyclovir (broadened by night team with possible seizure episode 5/4 AM) and continued pending LP results LLL Pna, organism unknown -azithro + rocephin, nebs Acute encephaloapthy likely infectious etiology given pna, appears to have waxing and waning mental status with assoicated fatigue confusion and hand tremors (visualized by Neurology and believed to be parkonsonian in nature) Episode possible seizure like activity 5/4 approx 12 AM CVA ruled out with MRI Hx multiple head traumas and chronic right frontal headache- follows with Dr Liseth Post Neurology Low suspicion related to hyponatremia as appears to be chronic in nature and mental status improved with pna treatment with na unchanged -appreciate neurology input-- low suspicion meningitis but will obtain LP, will check EEG with read pending at time of accepted to [facility], but suspect this is related to pna and possible parkinson disease on last neuro eval -new episode worsening tremor and lethargy 5/ approx 6 pm, neuro still with lower spuspicion of seizure activity, however all other work up is negative, rec for transfer for cont EEG monitoring and pt accepted at [facility] -stat ct head ordered and stat labs, both are not yet done and pending at this time and signed out to night team to follow awaiting transfer to [facility] Syncope day prior to admit again suspect 2/2 sepsis/pna + dehydration -cont tele, cus and echo no significant findings, trops neg -there is currently a reported rapid response for elevated HR at this time, though as this ocurred after my shift I do not know details of rapid response, please see addl documentation by night staff Pancytopenia With leukopenia and thrombocytopenia present on admit suspect changes related to sepsis no active bleeding -will cont to treat as above and monitor for changes -hold pharm vte ppx, add scds -stat CT head pending to rule out bleed at time of this documentation, night team to follow read once CT done hyponatremia, appears chronic vs acute on chronic ( no recent labs) mental status improved without change in sodium suspect hypovolemic in nature repeat level later today remained stable further diagnoses and plan as noted by resident time spent on dc 50 min transfer to [facility] further details can be obtained from next shift documentation of events occurring after 7pm
--- NOTE | 2018-11-25 19:03 | EEG/EMG/Oth Biometrics Report ---
EEG Procedure Report Date of procedure: 11/25/18 EEG Procedure: Routine EEG Procedure Note: This is a report of a 21 channel bipolar and referential montage EEG. A posterior dominant rhythm of 7-8 Hz moderate to low voltage mixed theta and alpha frequencies identified symmetrically in the posterior head regions. This attenuates symmetrically with eye opening. The rhythm however is poorly organized and poorly sustained. Hyperventilation is performed in recording. There is no sleep architecture identified during the study. Photic stimulation is performed and does not produce a driving response. The EKG rhythm strip reveals normal sinus rhythm at 90 bpm. Impressions: This EEG recording is mildly abnormal and is consistent with a mild generalized encephalopathy. There is no evidence of epileptiform activity identified during the study. Comment: Etiologies of this interpretation might include toxic, metabolic, postictal, infectious, medication effect. or degenerative. Please correlate clinically. Comment: This EEG does not rule out the possibility of seizures or epilepsy. If the clinical suspicion for seizure activity is high, serial EEGs or perhaps a prolonged study may increase the yield.
[2018-11-25] MEDS ORDERED: Acetaminophen 325 MG TABLET PO ONE (19:29)
[2018-11-25 19:30] LABS: Hematocrit 35.8 % (37.5-50.1); Red Cell Distribution Width 13.7 % (11.5-14.5)
[2018-11-25 19:32] LABS: Basophils % 0.7 %; Hemoglobin 12.2 g/dL (12.9-16.9); Immature Granulocytes % 0.4 % (0-4); Immature Platelets 4.6 % (1.1-6.1); Lymphocytes # 0.6 K/mcL (0.6-4.6); Lymphocytes % 20.4 %; Mean Corpuscular HGB Conc 34.1 g/dL (31.6-35.5); Mean Corpuscular Volume 85.2 fL (83.0-100.0); Mean Platelet Volume 9.9 fL (9.4-12.4); Monocytes # 0.3 K/mcL (0.0-1.3); Monocytes % 9.3 %; Neutrophils # 1.9 K/mcL (1.6-8.9); Segmented Neutrophils % 69.2 %
--- NOTE | 2018-11-25 19:32 | Event Note ---
Date of Encounter: 11/25/18 Time of Encounter: 19:10 Patient was seen during a rapid response alert. Patient has had intermittent tremulousness of the right upper extremity with waxing and waning confusion. Upon my arrival patient is awake, appears exhausted. He is diaphoretic. He is able to follow commands. He does recognize me, he remembers that was here to see him earlier today. Some questions however he does not answer appropriately. I would not consider him to be encephalopathic. He has no focal or lateralized deficits. No nuchal rigidity is present. He does have cogwheel rigidity of both upper extremities. His EEG revealed mild generalized encephalopathy. I interpreted study myself. It did not appear to be postictal in the true seconds, and the encephalopathy was mild is the posterior resting rhythm was at the lowest point only 7 Hz. The medicine team is also in attendance and the patient appears stable at this time from a neurologic perspective. However he will be transferred to tissue care facility for continuous EEG monitoring and other workup.
[2018-11-25 19:33] LABS: Platelet Count 53 K/mcL (140-400)
[2018-11-25 19:49] LABS: Platelet Estimate Decreased (Normal)
[2018-11-25 19:50] LABS: Alanine Aminotransferase 65 Units/L (7-52); Albumin/Globulin Ratio 1.3 (1.1-2.2); Alkaline Phosphatase 126 Units/L (34-104); Aspartate Amino Transferase 116 Units/L (13-39); BUN/Creatinine Ratio 16 (6-26); Bilirubin,Total 0.3 mg/dL (0.3-1.0); Blood Urea Nitrogen 20 mg/dL (8-23); Calcium 7.6 mg/dL (8.6-10.3); Carbon Dioxide 20 mEq/L (23-29); Chloride 100 mEq/L (98-107); Globulin 2.3 g/dL (2.4-3.5); Glucose 164 mg/dL (70-105); Osmolality,Calculated 270 (280-300); Potassium 3.6 mEq/L (3.5-5.1); Sodium 127 mEq/L (136-145); Total Protein 5.3 g/dL (6.4-8.9); eGFR For Non-African Americans 57 (> 60)
[2018-11-25 19:56] VITALS: BP 115/59
[2018-11-25 20:19] LABS: INR 1.1
[2018-11-25 20:21] LABS: Activated Partial Thrombo Time 35.4 Seconds (26.0-36.0)
--- NOTE | 2018-11-25 20:22 | Event Note ---
Date of Encounter: 11/25/18 Time of Encounter: 19:00 Rapid resposne kaila called and i wnet and assessed patient the bedside. I was told by the nurse that patient's heart rate had jumped to 250 bpm. when I went in the room, heart rate had dropped down to 90 bpm. We ordered a stat EKG on the patient which was negative for any ST-T changes,heart strain/block, HOCM , Brugada or WPW. On physical exam patient was able to follow commands, was mildly diaphoretic and tremulous in upper extremities. He was febrile with a temp of 102.8 and Motren was ordered. Patient has received Tylenol earlier . Neurologist agricultural extension officer Dr. Nguyen came and assessed the patient as well. Patient was deemed stable at this time from a neurological perspective. [facility] has been contacted for transfer of the patient for further neurological workup
[2018-11-25] MEDS ORDERED: Aminoglycoside Consult 1 EACH MC ONE (22:14)
== END 2018-11-25 22:15 | disposition short-term general hospital (02) | DRG 871 ==
LOC: 3BNU 19:15 → EMEROOARM 19:15 → SUATTDRO 22:34 → 3BNU 22:36
PROVIDERS: ADMIT Pediatrics; ATTEND Internal Medicine

== ENCOUNTER 2022-04-25 21:55 | Inpatient (IN) ==
[2022-04-26] MEDS: Acetaminophen 325 MG TABLET PO PRN ×2 (00:28→16:03)
[2022-04-26] MEDS ORDERED: Ondansetron 4 MG/2 ML VIAL IVP PRN (00:34)
[2022-04-26] MEDS ORDERED: Melatonin 3 MG TABLET PO PRN (00:34)
[2022-04-26] MEDS ORDERED: Naloxone 0.4 MG/ML INJ IVP PRN (00:34)
[2022-04-26 01:11] LABS: Basophils % 0.2 %; Eosinophils % 0.1 %; Hematocrit 38.1 % (37.5-50.1); Hemoglobin 12.9 g/dL (12.9-16.9); Immature Granulocytes % 0.3 % (0-4); Lymphocytes # 0.2 K/mcL (0.6-4.6); Lymphocytes % 2.1 %; Mean Corpuscular HGB Conc 33.9 g/dL (31.6-35.5); Mean Corpuscular Hemoglobin 29.4 pg (28.0-33.3); Mean Corpuscular Volume 86.8 fL (83.0-100.0); Mean Platelet Volume 8.5 fL (9.4-12.4); Monocytes # 0.1 K/mcL (0.0-1.3); Monocytes % 1.1 %; Neutrophils # 9.4 K/mcL (1.6-8.9); Platelet Count 240 K/mcL (140-400); Red Blood Count 4.39 M/mcL (4.19-5.50); Red Cell Distribution Width 12.8 % (11.5-14.5); Segmented Neutrophils % 96.2 %; White Blood Count 9.8 K/mcL (4.3-11.1)
[2022-04-26] MEDS ORDERED: Ringers Solution, Lactated 1,000 ML IVC ONE (01:13)
[2022-04-26 01:31] LABS: Albumin 3.6 g/dL (3.5-5.7); Albumin/Globulin Ratio 1.4 (1.1-2.2); Bilirubin,Direct 0.1 mg/dL (0.0-0.2); Bilirubin,Indirect 0.5 mg/dL (0.0-1.0); Bilirubin,Total 0.6 mg/dL (0.3-1.0); Calcium 8.8 mg/dL (8.6-10.3); Globulin 2.6 g/dL (2.4-3.5); Magnesium 1.6 mg/dL (1.6-2.6); Phosphorous 1.1 mg/dL (2.7-4.5); Potassium 3.4 mEq/L (3.5-5.1); Total Protein 6.2 g/dL (6.4-8.9)
[2022-04-26] MEDS ORDERED: Potassium Chloride Elixir 20 MEQ/15 ML UDC PO ONE (01:56)
[2022-04-26] MEDS: Ringers Solution, Lactated 1,000 ML IVC SCH ×2 (03:30→13:48)
[2022-04-26] MEDS ORDERED: cefTRIAXone 1,000 MG in 0.9 % Sodium Chloride Mini Bag 100 ML IVPB SCH (12:00)
[2022-04-26] MEDS: Piperacillin/Tazobactam 3.375 GM in 0.9 % Sodium Chloride Mini Bag 100 ML IVPB SCH (21:50)
[2022-04-27 02:27] LABS: Basophils % 0.2 %; Eosinophils # 0.1 K/mcL (0.0-0.6); Hematocrit 35.9 % (37.5-50.1); Hemoglobin 12.1 g/dL (12.9-16.9); Immature Granulocytes % 0.3 % (0-4); Lymphocytes # 0.8 K/mcL (0.6-4.6); Mean Corpuscular HGB Conc 33.7 g/dL (31.6-35.5); Mean Corpuscular Hemoglobin 29.6 pg (28.0-33.3); Mean Corpuscular Volume 87.8 fL (83.0-100.0); Mean Platelet Volume 8.8 fL (9.4-12.4); Monocytes # 0.5 K/mcL (0.0-1.3); Monocytes % 3.7 %; Neutrophils # 11.9 K/mcL (1.6-8.9); Platelet Count 203 K/mcL (140-400); Red Blood Count 4.09 M/mcL (4.19-5.50); Red Cell Distribution Width 13.2 % (11.5-14.5); Segmented Neutrophils % 88.8 %; White Blood Count 13.4 K/mcL (4.3-11.1)
[2022-04-27 02:43] LABS: Calcium 8.6 mg/dL (8.6-10.3); Phosphorous 2.9 mg/dL (2.7-4.5); Potassium 3.7 mEq/L (3.5-5.1)
[2022-04-27] MEDS: Piperacillin/Tazobactam 3.375 GM in 0.9 % Sodium Chloride Mini Bag 100 ML IVPB SCH (05:49)
[2022-04-27 06:23] VITALS: BP 146/78; PULSE 76; TEMP 98.7; O2SAT 96
== END 2022-04-27 12:50 | disposition home or self-care (01) | DRG 872 ==
LOC: 3BNU → SUATTDRO 23:35
PROVIDERS: ADMIT Internal Medicine; ATTEND Internal Medicine